=== PATIENT | male | born 1975 | race Caucasian/White ===

== ENCOUNTER 2020-01-19 12:57 | Emergency (ER) | payer BC, SELFPAY ==
[2020-01-19 13:29] VITALS: BP 142/78; PULSE 101; RESP 16; TEMP 36.6; O2SAT 97; BMI 21.9
--- NOTE | 2020-01-19 14:06 | ED.BACK ---
HPI - Back Pain/Injury General Chief Complaint: Back Pain/Injury Stated Complaint: back, hip, leg pain Time Seen by Provider: 01/19/20 14:06 Source: patient Mode of arrival: ambulatory Limitations: no limitations History of Present Illness HPI Narrative: 44 y/o male presenting with lower back and buttock pain that radiates down his legs that started yesterday when he woke up. He denies recent injury. He has a history of sciatica and states this feels similar. He hasn't had issues with it in several years. 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 He denies numbness, tingling, weakness or incontinence. He MD elicited complaint: back pain Pertinent past history: prior back pain Onset (ago): day(s) (1) Timing: constant Severity: severe Pain scale (0-10): 8 Similar Symptoms Previously: Yes Quality: sharp and aching Location: right lower back and left lower back Radiation: buttocks, left upper leg and right upper leg Exacerbating factors: movement and walking Relieving factors: immobilization Context: unknown Associated symptoms: denies other symptoms Treatments prior to arrival: acetaminophen Work related injury: No Related Data Previous Rx's Medication Instructions Recorded cyclobenzaprine 10 mg PO TID PRN #10 tab 01/19/20 hydrocodone-acetaminophen [[place]] 1 tab PO Q8H PRN #6 tab 01/19/20 lidocaine [Lidoderm] 1 patch TOPICAL DAILY #15 ea 01/19/20 naproxen 500 mg PO BID PRN #20 tab 01/19/20 prednisone 40 mg PO DAILY #10 tab 01/19/20 Allergies Allergy/AdvReac Type Severity Reaction Status Date / Time No Known Allergies Allergy Unverified 10/23/19 14:54 Review of Systems Review of Systems: Constitutional: No Fever, No Chills Cardiovascular: No Chest Pain, No SOB Respiratory: No Cough, No Sputum Gastrointestinal: No Nausea, No Vomiting, No Diarrhea, No abdominal Pain Genitourinary: No Dysuria, No Urinary Frequency, No Hematuria Musculoskeletal: + joint pain, + Myalgias Skin: No Skin Lesions, No rash Neuro: No Weakness, No Numbness Heme/Lymph: No Bruising PMFSH Past Medical History Attestation statement: The following information was validated with the patient. Medical History Club foot Psoriasis Scoliosis Surgical History (Updated 01/19/20 @ 13:33 by Zonia Beebe) History of ankle surgery Social History Social History Advance Directives: No Advance Directives Information Provided: No Physical Exam Vital Signs: Vital Signs: Last Vital Signs Temp 97.9 F 01/19/20 13:29 Pulse 101 H 01/19/20 13:29 Resp 16 01/19/20 13:29 BP 142/78 H 01/19/20 13:29 Pulse Ox 97 01/19/20 13:29 Body Mass Index 21.9 Appearance: Alert. Oriented X3. No acute distress. HEENT: normal inspection Respiratory: No respiratory distress. Skin: Skin warm and dry. Normal skin color. Normal skin turgor. No rashes. Back: bilateral SI joint tenderness with positive straight leg raise test on the left. no spinal tenderness. Extremities: atraumatic, no LE edema. normal DTR. Neuro: Oriented X 3. No motor deficit. No sensory deficit. Ambulates with steady gait Course Course Course Narrative: 44 y/o male with history of sciatica in the past presenting with the same. No trauma. No red flag symptoms of LBP, no hx IDVA. Exam with SI joint tenderness. He has been to PT in the past with good effect. He agrees to f/u with his PCP to arrange. Will give Rx for symptomatic management. Patient counseled and agrees to follow up. Stable for d/c. MDM - Back Pain/Injury Differential Diagnosis Differential diagnosis: Likely lumbar radiculopathy, sciatica and strain of lumbar region Critical Care Time Critical Care Time Critical Care Time: No Discharge Plan Discharge Clinical Impression: Sciatica Qualifiers: Laterality: bilateral Qualified Code(s): M54.31 - Sciatica, right side Patient Disposition: Home, Self-Care Instructions: Sciatica (ED), Lower Back Exercises (ED) Additional Instructions: Use ice several times per day for the next 48 hours then use heat. Limit bending, lifting >10 lbs and twisting movements. Take prescribed medications as directed. Follow up with your doctor this week. You would likely benefit from Physical Therapy. If you develop worsening pain, new numbness, weakness, tingling, or incontinence call 911 or come back to the ER for further evaluation. Prescriptions: New cyclobenzaprine 10 mg tablet 10 mg PO TID PRN (Reason: muscle spasm) Qty: 10 RF: 0 prednisone 20 mg tablet 40 mg PO DAILY Qty: 10 RF: 0 lidocaine [Lidoderm] 5 % adhesive patch,medicated 1 patch topical DAILY Qty: 15 RF: 0 naproxen 500 mg tablet 500 mg PO BID PRN (Reason: pain) Qty: 20 RF: 0 hydrocodone-acetaminophen [[place]] 5-325 mg tablet 1 tab PO Q8H PRN (Reason: pain) Qty: 6 RF: 0 Stand Alone Forms: Work/School Release Discharge Date/Time: 01/19/20 14:42
== END 2020-01-19 14:42 | disposition home or self-care (01) ==
PROVIDERS: Emergency Provider Emergency Medicine; PCP Internal Medicine
DX: M54.42 Lumbago with sciatica, left side (principal); M54.41 Lumbago with sciatica, right side
CPT/HCPCS: 99283

== ENCOUNTER 2020-10-30 15:08 | Emergency (ER) | payer OTHER, SELFPAY ==
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
[2020-10-30 15:22] VITALS: BP 112/64; PULSE 59; RESP 17; TEMP 36.7; O2SAT 98; BMI 21.9
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
== END 2020-10-30 19:08 | disposition home or self-care (01) ==
PROVIDERS: Emergency Provider Internal Medicine; PCP Internal Medicine
DX: S06.0X0A Concussion without loss of consciousness, initial encounter (principal); G44.309 Post-traumatic headache, unspecified, not intractable; M54.2 Cervicalgia; Y29.XXXA Contact with blunt object, undetermined intent, initial encounter; Y93.9 Activity, unspecified; Y92.9 Unspecified place or not applicable; Y99.0 Civilian activity done for income or pay; Z79.899 Other long term (current) drug therapy
CPT/HCPCS: 70450; 72125; 99283; 99284

== ENCOUNTER 2022-06-04 17:47 | Emergency (ER) | payer OTHER, SELFPAY ==
--- NOTE | ~2022-06-04 | XR_ITS ---
EXAMINATION: XR CERVICAL SPINE CLINICAL INFORMATION: Neck pain COMPARISON: None available. TECHNIQUE: 4 views FINDINGS: No prevertebral soft tissue swelling. Mild disc space narrowing at C5-C6 and C6-C7. Marginal osteophytes. Posterior elements appear intact. No focal bony lesion or fracture. Lung apices clear. XR/XR cervical spine 3V IMPRESSION: Mild degenerative disc disease as above.
[2022-06-04 18:34] VITALS: BP 136/76; PULSE 73; RESP 20; TEMP 36.7; O2SAT 98; BMI 23.5
--- NOTE | 2022-06-04 18:37 | ED_ITS ---
HPI - General Adult General Chief complaint: Back Pain/Injury <DALIA Khan - Last Filed: 06/06/22 13:24> Stated complaint: pain in back of head rad. to L arm <DALIA Khna - Last Filed: 06/06/22 13:24> Time Seen by Provider: 06/04/22 22:48 <DALIA Khan - Last Filed: 06/06/22 13:24> Source: patient <Raoul Pcaheco MD - Last Filed: 06/05/22 02:08> Mode of arrival: ambulatory <Raoul Pacheco MD - Last Filed: 06/05/22 02:08> Limitations: no limitations <Raoul Pacheco MD - Last Filed: 06/05/22 02:08> History of Present Illness HPI narrative: Patient history of arthritis works heavy , complaining of pain bilateral side of the neck for last 4 days no hand weakness no paresthesias does have chronic pain off and on <Raoul Pacheco MD - Last Filed: 06/05/22 02:08> Related Data Home medications: Previous Rx's Medication Instructions Recorded cyclobenzaprine 10 mg tablet 10 mg PO TID PRN muscle spasm #10 01/19/20 tabs hydrocodone 5 mg-acetaminophen 325 1 tab PO Q8H PRN pain #6 tabs 01/18/20 mg tablet ([place]) lidocaine 5 % topical patch 1 patch topical DAILY #15 ea 01/19/20 (Lidoderm) naproxen 500 mg tablet 500 mg PO BID PRN pain #20 tabs 01/19/20 prednisone 20 mg tablet 40 mg PO DAILY #10 tabs 01/19/20 cyclobenzaprine 10 mg tablet 10 mg PO Q8H #20 tabs 06/04/22 tramadol 50 mg tablet 50 mg PO Q6H PRN pain #20 tabs 06/04/22 <DALIA Khan - Last Filed: 06/06/22 13:24> Allergies/adverse reactions: Allergies Allergy/AdvReac Type Severity Reaction Status Date / Time No Known Allergies Allergy Verified 10/30/20 15:22 <DALIA Khan - Last Filed: 06/06/22 13:24> Review of Systems Review of Systems: Yes all other systems are reviewed and are negative <Raoul Pacheco MD - Last Filed: 06/05/22 02:08> [facility] Past Medical History Medical History: Medical History Club foot Psoriasis Scoliosis <DALIA Khan - Last Filed: 06/06/22 13:24> Surgical History: Surgical History History of ankle surgery <DALIA Khan - Last Filed: 06/06/22 13:24> Social History Social History: Social History Alcohol intake: current Alcohol intake frequency: holidays/special occasions only Alcohol type: beer and other Smoked in Last 30 Days: Yes Use of substances other than those prescribed or required for medical reasons: No Advance Directives: No Advance Directives Information Provided: No <DALIA Khna - Last Filed: 06/06/22 13:24> Physical Exam ED Vital Signs: Vital Signs - 24 hr 06/04/22 18:34 06/04/22 22:00 Temperature 98.0 F 97.7 F Pulse Rate 73 106 H Respiratory Rate 20 18 Blood Pressure 136/76 140/77 H Pulse Oximetry 98 96 Oxygen Delivery Method Room Air Room Air BMI result Body Mass Index 23.5 <DALIA Khan - Last Filed: 06/06/22 13:24> Vital Signs - 24 hr 06/04/22 18:34 06/04/22 22:00 Temperature 98.0 F 97.7 F Pulse Rate 73 106 H Respiratory Rate 20 18 Blood Pressure 136/76 140/77 H Pulse Oximetry 98 96 Oxygen Delivery Method Room Air Room Air BMI result Body Mass Index 23.5 <Raoul Pacheco MD - Last Filed: 06/05/22 02:08> Appearance: Alert. Oriented X3. No acute distress. ENT: Pharynx normal. Oral Mucosa moist Neck: Normal inspection. Neck supple. No midline tenderness bilateral CVS: Normal heart rate and rhythm. Pulses normal. Respiratory: No respiratory distress. Equal air entry bilateral, Abdomen: Soft and nontender. Bowel sounds are present, no mass palpable, Skin: Skin warm and dry. Normal skin color. Normal skin turgor. Extremities: No lower extremity edema. No calf tenderness Neuro: Oriented X 3. No motor deficit. No sensory deficit.No cerebellar signs , cranial nerves II-XII intact <Raoul Pacheco MD - Last Filed: 06/05/22 02:08> Course Course Course Narrative: RME: posterior neck pain radiating down left arm. Patient also states left forearm tichiness. patient staes no chest pain, or shortness of breath. negative for recent trauma or swelling of left upper extremity. Cervical spine xray ordered. due to neck paind going down left arm with fater having heart attack, will do cardiac workup <DALIA Khan - Last Filed: 06/06/22 13:24> Medications Administered Discontinued Medications Generic Name Dose Route Start Last Admin Trade Name Freq PRN Reason Stop Dose Admin Cyclobenzaprine HCl 10 mg 06/04/22 23:06 06/04/22 23:27 Cyclobenzaprine Hcl 10 Mg Tablet PO 06/04/22 23:07 10 mg ONCE ONE Administration Oxycodone HCl 5 mg 06/04/22 23:06 06/04/22 23:27 Oxycodone Hcl Immed Release 5 Mg Tablet PO 06/04/22 23:07 5 mg ONCE ONE Administration <DALIA Khan - Last Filed: 06/06/22 13:24> Medications Administered Discontinued Medications Generic Name Dose Route Start Last Admin Trade Name Freq PRN Reason Stop Dose Admin Cyclobenzaprine HCl 10 mg 06/04/22 23:06 06/04/22 23:27 Cyclobenzaprine Hcl 10 Mg Tablet PO 06/04/22 23:07 10 mg ONCE ONE Administration Oxycodone HCl 5 mg 06/04/22 23:06 06/04/22 23:27 Oxycodone Hcl Immed Release 5 Mg Tablet PO 06/04/22 23:07 5 mg ONCE ONE Administration <Raoul Pacheco MD - Last Filed: 06/05/22 02:08> Medical Decision Making Medical Decision Making [facility] Narrative: Patient has diffuse muscular pain no signs of no impingement discharge patient home on tramadol and Flexeril <Raoul Pacheco MD - Last Filed: 06/05/22 02:08> Lab Data [facility] Lab Attestation statement: I reviewed the patient's lab results. <Raoul Pacheco MD - Last Filed: 06/05/22 02:08> Result Diagrams: 06/04/22 19:00 06/04/22 19:00 <DALIA Khan - Last Filed: 06/06/22 13:24> Labs: Lab Results 06/04/22 06/04/22 06/04/22 Range/Units 19:00 19:00 19:00 WBC 10.2 (4.8-10.8) X10*3/uL RBC 4.90 (4.60-5.80) X10*6/uL Hgb 14.9 (14.0-18.0) g/dl Hct 43.4 (42.0-52.0) % MCV 88.6 (80.0-98.0) fL MCH 30.4 (27.0-33.0) pg MCHC 34.3 (31.0-36.0) g/dl RDW 12.7 (11.0-16.0) % Plt Count 342 (160-400) X10*3/uL MPV 8.8 L (9.4-12.4) fL Immature Gran % (Auto) 0.5 H (0.0-0.4) % Neut % (Auto) 66.1 (45-73) % Lymph % (Auto) 25.0 (20-40) % [place] % (Auto) 5.8 (2-11) % Eos % (Auto) 1.9 (0-4) % Baso % (Auto) 0.7 (0-2) % Lymph # (Auto) 2.5 (1.2-4.9) X10*3/uL [place] # (Auto) 0.6 (0.1-1.2) X10*3/uL Eos # (Auto) 0.2 (0.0-0.4) X10*3/uL Baso # (Auto) 0.1 (0.0-0.2) X10*3/uL Abs Immat Gran (auto) 0.05 H (0.00-0.03) X10*3/uL Absolute Neuts (auto) 6.7 (2.0-8.3) x10*3/uL Absolute Nucleated RBC 0.000 (0.0-0.012) X10*3/uL Nucleated RBC % (auto) 0.0 (0.0-0.2) /100WBC PT 11.0 (10.0-13.1) SEC INR 1.0 (0.9-1.1) APTT 31.7 (26.0-36.4) SEC Sodium 143 (135-145) mmol/L Potassium 4.2 (3.3-5.1) mmol/L Chloride 106 (96-108) mmol/L Carbon Dioxide 28 (22-29) mmol/L Anion Gap 13 (12-20) BUN 19 H (9-16) mg/dL Creatinine 0.90 (0.5-1.4) mg/dL Estim Creat Clear Calc 94.8 Estimated GFR > 60 Random Glucose 68 (60-115) mg/dL Calcium 10.2 (8.4-10.2) mg/dL Total Bilirubin 0.3 (0.0-1.0) mg/dL AST 17 (5-37) U/L ALT 16 (0-40) U/L Alkaline Phosphatase 59 (39-117) U/L Troponin I High Sens (<3.5-35.0) ng/L B-Natriuretic Peptide (<100) pg/mL Total Protein 7.3 (6.5-8.0) g/dL Albumin 4.6 (3.5-5.0) g/dL 06/04/22 06/04/22 Range/Units 19:00 19:00 WBC (4.8-10.8) X10*3/uL RBC (4.60-5.80) X10*6/uL Hgb (14.0-18.0) g/dl Hct (42.0-52.0) % MCV (80.0-98.0) fL MCH (27.0-33.0) pg MCHC (31.0-36.0) g/dl RDW (11.0-16.0) % Plt Count (160-400) X10*3/uL MPV (9.4-12.4) fL Immature Gran % (Auto) (0.0-0.4) % Neut % (Auto) (45-73) % Lymph % (Auto) (20-40) % [place] % (Auto) (2-11) % Eos % (Auto) (0-4) % Baso % (Auto) (0-2) % Lymph # (Auto) (1.2-4.9) X10*3/uL [place] # (Auto) (0.1-1.2) X10*3/uL Eos # (Auto) (0.0-0.4) X10*3/uL Baso # (Auto) (0.0-0.2) X10*3/uL Abs Immat Gran (auto) (0.00-0.03) X10*3/uL Absolute Neuts (auto) (2.0-8.3) x10*3/uL Absolute Nucleated RBC (0.0-0.012) X10*3/uL Nucleated RBC % (auto) (0.0-0.2) /100WBC PT (10.0-13.1) SEC INR (0.9-1.1) APTT (26.0-36.4) SEC Sodium (135-145) mmol/L Potassium (3.3-5.1) mmol/L Chloride (96-108) mmol/L Carbon Dioxide (22-29) mmol/L Anion Gap (12-20) BUN (9-16) mg/dL Creatinine (0.5-1.4) mg/dL Estim Creat Clear Calc Estimated GFR Random Glucose (60-115) mg/dL Calcium (8.4-10.2) mg/dL Total Bilirubin (0.0-1.0) mg/dL AST (5-37) U/L ALT (0-40) U/L Alkaline Phosphatase (39-117) U/L Troponin I High Sens 3.7 (<3.5-35.0) ng/L B-Natriuretic Peptide 11 (<100) pg/mL Total Protein (6.5-8.0) g/dL Albumin (3.5-5.0) g/dL <DALIA Khan - Last Filed: 06/06/22 13:24> Lab Results 06/04/22 06/04/22 06/04/22 Range/Units 19:00 19:00 19:00 WBC 10.2 (4.8-10.8) X10*3/uL RBC 4.90 (4.60-5.80) X10*6/uL Hgb 14.9 (14.0-18.0) g/dl Hct 43.4 (42.0-52.0) % MCV 88.6 (80.0-98.0) fL MCH 30.4 (27.0-33.0) pg MCHC 34.3 (31.0-36.0) g/dl RDW 12.7 (11.0-16.0) % Plt Count 342 (160-400) X10*3/uL MPV 8.8 L (9.4-12.4) fL Immature Gran % (Auto) 0.5 H (0.0-0.4) % Neut % (Auto) 66.1 (45-73) % Lymph % (Auto) 25.0 (20-40) % [place] % (Auto) 5.8 (2-11) % Eos % (Auto) 1.9 (0-4) % Baso % (Auto) 0.7 (0-2) % Lymph # (Auto) 2.5 (1.2-4.9) X10*3/uL [place] # (Auto) 0.6 (0.1-1.2) X10*3/uL Eos # (Auto) 0.2 (0.0-0.4) X10*3/uL Baso # (Auto) 0.1 (0.0-0.2) X10*3/uL Abs Immat Gran (auto) 0.05 H (0.00-0.03) X10*3/uL Absolute Neuts (auto) 6.7 (2.0-8.3) x10*3/uL Absolute Nucleated RBC 0.000 (0.0-0.012) X10*3/uL Nucleated RBC % (auto) 0.0 (0.0-0.2) /100WBC PT 11.0 (10.0-13.1) SEC INR 1.0 (0.9-1.1) APTT 31.7 (26.0-36.4) SEC Sodium 143 (135-145) mmol/L Potassium 4.2 (3.3-5.1) mmol/L Chloride 106 (96-108) mmol/L Carbon Dioxide 28 (22-29) mmol/L Anion Gap 13 (12-20) BUN 19 H (9-16) mg/dL Creatinine 0.90 (0.5-1.4) mg/dL Estim Creat Clear Calc 94.8 Estimated GFR > 60 Random Glucose 68 (60-115) mg/dL Calcium 10.2 (8.4-10.2) mg/dL Total Bilirubin 0.3 (0.0-1.0) mg/dL AST 17 (5-37) U/L ALT 16 (0-40) U/L Alkaline Phosphatase 59 (39-117) U/L Troponin I High Sens (<3.5-35.0) ng/L B-Natriuretic Peptide (<100) pg/mL Total Protein 7.3 (6.5-8.0) g/dL Albumin 4.6 (3.5-5.0) g/dL 06/04/22 06/04/22 Range/Units 19:00 19:00 WBC (4.8-10.8) X10*3/uL RBC (4.60-5.80) X10*6/uL Hgb (14.0-18.0) g/dl Hct (42.0-52.0) % MCV (80.0-98.0) fL MCH (27.0-33.0) pg MCHC (31.0-36.0) g/dl RDW (11.0-16.0) % Plt Count (160-400) X10*3/uL MPV (9.4-12.4) fL Immature Gran % (Auto) (0.0-0.4) % Neut % (Auto) (45-73) % Lymph % (Auto) (20-40) % [place] % (Auto) (2-11) % Eos % (Auto) (0-4) % Baso % (Auto) (0-2) % Lymph # (Auto) (1.2-4.9) X10*3/uL [place] # (Auto) (0.1-1.2) X10*3/uL Eos # (Auto) (0.0-0.4) X10*3/uL Baso # (Auto) (0.0-0.2) X10*3/uL Abs Immat Gran (auto) (0.00-0.03) X10*3/uL Absolute Neuts (auto) (2.0-8.3) x10*3/uL Absolute Nucleated RBC (0.0-0.012) X10*3/uL Nucleated RBC % (auto) (0.0-0.2) /100WBC PT (10.0-13.1) SEC INR (0.9-1.1) APTT (26.0-36.4) SEC Sodium (135-145) mmol/L Potassium (3.3-5.1) mmol/L Chloride (96-108) mmol/L Carbon Dioxide (22-29) mmol/L Anion Gap (12-20) BUN (9-16) mg/dL Creatinine (0.5-1.4) mg/dL Estim Creat Clear Calc Estimated GFR Random Glucose (60-115) mg/dL Calcium (8.4-10.2) mg/dL Total Bilirubin (0.0-1.0) mg/dL AST (5-37) U/L ALT (0-40) U/L Alkaline Phosphatase (39-117) U/L Troponin I High Sens 3.7 (<3.5-35.0) ng/L B-Natriuretic Peptide 11 (<100) pg/mL Total Protein (6.5-8.0) g/dL Albumin (3.5-5.0) g/dL <Raoul Pacheco MD - Last Filed: 06/05/22 02:08> Discharge Plan Discharge Clinical Impression: Cervical myofascial strain <DALIA Khan - Last Filed: 06/06/22 13:24> Patient Disposition: Home, Self-Care <DALIA Khan - Last Filed: 06/06/22 13:24> Instructions: Cervical Strain (ED) <DALIA Khan - Last Filed: 06/06/22 13:24> Additional Instructions: Take pain medication and muscle relaxant as prescribed Rest and apply ice <DALIA Khan - Last Filed: 06/06/22 13:24> Prescriptions: New cyclobenzaprine 10 mg tablet 10 mg PO Q8H Qty: 20 0RF tramadol 50 mg tablet 50 mg PO Q6H PRN (Reason: pain) Qty: 20 0RF No Action cyclobenzaprine 10 mg tablet 10 mg PO TID PRN (Reason: muscle spasm) Qty: 10 0RF prednisone 20 mg tablet 40 mg PO DAILY Qty: 10 0RF lidocaine [Lidoderm] 5 % adhesive patch,medicated 1 patch topical DAILY Qty: 15 0RF Rx Instructions: leave on most painful area for up to 12 hrs naproxen 500 mg tablet 500 mg PO BID PRN (Reason: pain) Qty: 20 0RF hydrocodone-acetaminophen [[place]] 5-325 mg tablet 1 tab PO Q8H PRN (Reason: pain) Qty: 6 0RF Rx Instructions: for 3 days <DALIA Khan - Last Filed: 06/06/22 13:24> Stand Alone Forms: Work/School Release <DALIA Khan - Last Filed: 06/06/22 13:24> Interventions: ED Discharge Assessment Last Done: 06/04/22 23:34 <DALIA Khan - Last Filed: 06/06/22 13:24> Discharge Date/Time: 06/04/22 23:34 <DALIA Khan - Last Filed: 06/06/22 13:24>
--- NOTE | 2022-06-04 18:40 | ECG_ITS ---
Test Reason : BACK PAIN Blood Pressure : / mmHG Vent. Rate : 069 BPM Atrial Rate : 069 BPM P-R Int : 134 ms QRS Dur : 098 ms QT Int : 360 ms P-R-T Axes : 053 025 048 degrees QTc Int : 385 ms Normal sinus rhythm Normal ECG No previous ECGs available Referred By: Nazario Worrell Electronically Signed By:JUVE NGUYEN MD
[2022-06-04 19:05] LABS: MANUAL DIFF FLAG NO
[2022-06-04 19:07] LABS: Basophils Absolute Auto 0.1 X10*3/uL (0.0-0.2); Basophils Percent Auto 0.7 % (0-2); Eosinophils Absolute Auto 0.2 X10*3/uL (0.0-0.4); Eosinophils Percent Auto 1.9 % (0-4); Hematocrit 43.4 % (42.0-52.0); Hemoglobin 14.9 g/dl (14.0-18.0); Imm Gran Abs Auto 0.05 X10*3/uL (0.00-0.03); Imm Gran Pct Auto 0.5 % (0.0-0.4); Lymphocytes Absolute Auto 2.5 X10*3/uL (1.2-4.9); Mean Corpuscular HGB Conc 34.3 g/dl (31.0-36.0); Mean Corpuscular Hemoglobin 30.4 pg (27.0-33.0); Mean Corpuscular Volume 88.6 fL (80.0-98.0); Mean Platelet Volume 8.8 fL (9.4-12.4); Monocytes Absolute Auto 0.6 X10*3/uL (0.1-1.2); Monocytes Percent Auto 5.8 % (2-11); Neutrophils Absolute Auto 6.7 x10*3/uL (2.0-8.3); Neutrophils Percent Auto 66.1 % (45-73); Platelet Count 342 X10*3/uL (160-400); Red Cell Distribution Width 12.7 % (11.0-16.0); White Blood Count 10.2 X10*3/uL (4.8-10.8)
[2022-06-04 19:15] LABS: Partial Thromboplastin Time 31.7 SEC (26.0-36.4)
[2022-06-04 19:28] LABS: Alanine Aminotransferase 16 U/L (0-40); Albumin Level 4.6 g/dL (3.5-5.0); Alkaline Phosphatase 59 U/L (39-117); Anion Gap 13 (12-20); Aspartate Amino Transferase 17 U/L (5-37); Bilirubin Total 0.3 mg/dL (0.0-1.0); Blood Urea Nitrogen 19 mg/dL (9-16); Calcium 10.2 mg/dL (8.4-10.2); Carbon Dioxide 28 mmol/L (22-29); Chloride 106 mmol/L (96-108); Creatinine Clr Calc Pharmacy 94.8; Estimated Glomerular Filt Rate > 60; Glucose Random 68 mg/dL (60-115); Potassium 4.2 mmol/L (3.3-5.1); Sodium 143 mmol/L (135-145); Total Protein 7.3 g/dL (6.5-8.0)
[2022-06-04 19:34] LABS: B Type Natriuretic Peptide 11 pg/mL (<100)
[2022-06-04 19:35] LABS: Troponin-I High Sensitivity 3.7 ng/L (<3.5-35.0)
[2022-06-04 22:00] VITALS: BP 140/77; PULSE 106; RESP 18; TEMP 36.5; O2SAT 96
[2022-06-04] MEDS: Cyclobenzaprine HCl 10 MG TABLET PO (23:27)
[2022-06-04] MEDS: oxyCODONE HCl Immed Release 5 MG TABLET PO (23:27)
== END 2022-06-04 23:34 | disposition home or self-care (01) ==
PROVIDERS: Physician Assistant; Emergency Provider Internal Medicine; PCP Internal Medicine
DX: S13.4XXA Sprain of ligaments of cervical spine, initial encounter (principal); R51.9 Headache, unspecified; M54.2 Cervicalgia; R06.02 Shortness of breath; M54.50 Low back pain, unspecified; X58.XXXA Exposure to other specified factors, initial encounter; Y93.9 Activity, unspecified; Y92.9 Unspecified place or not applicable; Y99.9 Unspecified external cause status; Z79.899 Other long term (current) drug therapy
CPT/HCPCS: 36415; 72040; 80053; 83880; 84484; 85025; 85610; 85730; 93005; 99285

== ENCOUNTER 2023-09-26 17:30 | Emergency (ER) | payer OTHER, SELFPAY ==
--- NOTE | ~2023-09-26 | CT_ITS ---
EXAMINATION: CT HEAD WITHOUT CONTRAST CLINICAL INFORMATION: Headache COMPARISON: None. TECHNIQUE: Contiguous axial imaging was performed from the skullbase to vertex without intravenous administration of contrast. This CT examination was performed using dose optimization techniques as appropriate, variously including the following: *Automated exposure control *Adjustment of mA and/or kV according to patient size (this includes techniques or standardized protocols for targeted exams where dose is matched to indication/reason for exam; i.e. extremities or head) *Use of iterative reconstruction technique DLP [id number] mgy centimeter FINDINGS: There is no evidence of acute intracranial hemorrhage or territorial infarction. No abnormal mass effect or midline shift is seen. [place] to white matter differentiation is well preserved. No extra-axial fluid collections are identified. The ventricles are normal in size. There is no abnormal attenuation within the brain parenchyma. The osseous structures and soft tissues are normal. The mastoid air cells and visualized portions of the paranasal sinuses are well-aerated. CT/CT head/brain wo IV con IMPRESSION: No acute intracranial pathology. Electronically signed by: Bruno Perez MD 09/26/2023 09:11 PM EDT
[2023-09-26 18:18] VITALS: BP 133/77; PULSE 65; RESP 18; TEMP 36.9; O2SAT 100; BMI 23.4
--- NOTE | 2023-09-26 18:19 | ED.GENADULT ---
HPI - General Adult General Chief complaint: Headache Stated complaint: pressure at base of head, feels out of it\ Time Seen by Provider: 09/27/23 02:07 Source: patient Mode of arrival: ambulatory Limitations: no limitations History of Present Illness ED Provider: Dr. Ren HPI narrative: Patient complaining of headache and extreme fatigue for the past 4 days, just feels like he can't function Onset (ago): day(s) Related Data Previous Rx's ?Medication ?Instructions ?Recorded cyclobenzaprine 10 mg tablet 10 mg PO TID PRN muscle spasm #10 01/19/20 tabs hydrocodone 5 mg-acetaminophen 325 1 tab PO Q8H PRN pain #6 tabs 01/19/20 mg tablet ([place]) lidocaine 5 % topical patch 1 patch topical DAILY #15 ea 01/19/20 (Lidoderm) naproxen 500 mg tablet 500 mg PO BID PRN pain #20 tabs 01/19/20 prednisone 20 mg tablet 40 mg (2 x 20 mg) PO DAILY #10 tabs 01/19/20 cyclobenzaprine 10 mg tablet 10 mg PO Q8H #20 tabs 06/04/22 tramadol 50 mg tablet 50 mg PO Q6H PRN pain #20 tabs 06/04/22 Allergies Allergy/AdvReac Type Severity Reaction Status Date / Time No Known Allergies Allergy Verified 09/26/23 18:21 Review of Systems Review of Systems: Yes all other systems are reviewed and are negative Neurologic: Denies Sensory deficit (Neuro) PMFSH Past Medical History Medical History Club foot Psoriasis Scoliosis Surgical History History of ankle surgery Social History Social History Alcohol intake: current Alcohol intake frequency: holidays/special occasions only Alcohol type: beer and other Advance Directives: No Advance Directives Information Provided: Yes Do you have a plan to hurt others: No Plan Physical Exam ED Vital Signs: Vital Signs - 24 hr 09/26/23 18:18 09/26/23 23:04 09/26/23 23:04 Temperature 98.4 F 97.0 F 97.0 F Pulse Rate 65 55 55 Respiratory Rate 18 17 17 Blood Pressure 133/77 119/75 119/75 Pulse Oximetry 100 100 100 Oxygen Delivery Method Room Air Room Air Room Air 09/27/23 02:00 Temperature 97.3 F Pulse Rate 54 Respiratory Rate 16 Blood Pressure 125/74 Pulse Oximetry 99 Oxygen Delivery Method Room Air BMI result Body Mass Index 23.4 Const General: healthy appearing Nutritional Appearance: average body habitus Orientation/consciousness: oriented to person and patient oriented x3 Limitations: no limitations HENMT Head: Yes normal to inspection Ears: external ears normal General nose exam: Normal external nose present Mouth: Normal oral and palatal mucosa present and oropharynx normal Throat: Yes posterior oropharynx normal Eyes General: appearance normal, both eyes and all related structures Neck Neck: Yes normal visual inspection Chest Chest palpation & inspection: normal inspection of the chest Resp Auscultation: clear to auscultation bilaterally Cardio Jugular venous distension: no JVD Rate: regular rate Rhythm: regular rhythm Heart sounds: S1 normal heart sound present and S2 normal heart sound present GI Inspection: Yes normal to inspection Palpation (GI): Soft to palpation, nontender and No hepatosplenomegaly present Auscultation: normal bowel sounds General: Yes no CVA tenderness Back/Spine/Pelvis Back: no CVA tenderness Skin General skin exam: no rashes or lesions noted Neuro General: oriented to person and patient oriented x3 Cranial nerves: Yes CN's II-XII intact bilaterally Motor exam (neuro): 5/5 motor strength present throughout Sensory Exam: No Sensory deficit (Neuro) Extrem General: Yes normal to inspection Psych Appearance: grossly normal Course Course Course Narrative: RME, this is a rapid medical exam performed by Emigdio Salas please refer to primary provider for complete H&P- 48 year old male presents for evaluation of posterior headache that he describes as a pressure. Neurologically intact. Plan for basic labs and a CT brain. Patient denies any history of migraines Reevaluation(s) Reevaluation #1: CT of brain and blood work negative, no evidence of mass or electrolyte or cell count problems Time: 02:23 Medical Decision Making Differential Diagnosis Differential Diagnoses: The differential diagnosis associated with the presentation includes (brain tumor, mass, cerebral bleed, anemia, electrolyte abnormality) Admission/Observation Consideration of admission/observation: Escalation of care including admission/observation considered (Upon arrival patient considered for admission) Lab Data 09/26/23 18:46 09/26/23 18:46 Labs: Lab Results 09/26/23 Range/Units 18:46 WBC 11.1 H (4.8-10.8) X10*3/uL RBC 4.87 (4.60-5.80) X10*6/uL Hgb 15.2 (14.0-18.0) g/dl Hct 43.4 (42.0-52.0) % MCV 89.1 (80.0-98.0) fL MCH 31.2 (27.0-33.0) pg MCHC 35.0 (31.0-36.0) g/dl RDW 13.2 (11.0-16.0) % Plt Count 351 (160-400) X10*3/uL MPV 9.2 L (9.4-12.4) fL Immature Gran % (Auto) 0.4 (0.0-0.4) % Neut % (Auto) 68.3 (45-73) % Lymph % (Auto) 23.1 (20-40) % [place] % (Auto) 6.2 (2-11) % Eos % (Auto) 1.3 (0-4) % Baso % (Auto) 0.7 (0-2) % Lymph # (Auto) 2.6 (1.2-4.9) X10*3/uL [place] # (Auto) 0.7 (0.1-1.2) X10*3/uL Eos # (Auto) 0.1 (0.0-0.4) X10*3/uL Baso # (Auto) 0.1 (0.0-0.2) X10*3/uL Abs Immat Gran (auto) 0.04 H (0.00-0.03) X10*3/uL Absolute Neuts (auto) 7.6 (2.0-8.3) x10*3/uL Absolute Nucleated RBC 0.000 (0.0-0.012) X10*3/uL Nucleated RBC % (auto) 0.0 (0.0-0.2) /100WBC Sodium 140 (135-145) mmol/L Potassium 4.0 (3.3-5.1) mmol/L Chloride 106 (96-108) mmol/L Carbon Dioxide 26 (22-29) mmol/L Anion Gap 12 (12-20) BUN 14 (9-16) mg/dL Creatinine 0.94 (0.5-1.4) mg/dL Estim Creat Clear Calc 88.8 Estimated GFR > 60 Random Glucose 90 (60-115) mg/dL Calcium 9.9 (8.4-10.2) mg/dL Total Bilirubin 0.4 (0.0-1.0) mg/dL AST 17 (5-37) U/L ALT 12 (0-40) U/L Alkaline Phosphatase 58 (39-117) U/L Total Protein 7.5 (6.5-8.0) g/dL Albumin 4.4 (3.5-5.0) g/dL Lipase 24 (8-78) U/L Independent Interpretation I performed an independent interpretation of an: CT Scan (BRain: no mass or bleed) Radiology Impression Discussion of test interpretation with radiology: I have reviewed the radiologist's reading. Prescription Management I considered prescription management with: Antibiotic (no evidence of bacterial infection) Discharge Plan Discharge Clinical Impression: Headache, Fatigue Patient Disposition: Home, Self-Care Instructions: Acute Headache (ED), Fatigue (ED) Prescriptions: No Action cyclobenzaprine 10 mg tablet 10 mg PO TID PRN (Reason: muscle spasm) Qty: 10 0RF prednisone 20 mg tablet 40 mg PO DAILY Qty: 10 0RF lidocaine [Lidoderm] 5 % adhesive patch,medicated 1 patch topical DAILY Qty: 15 0RF Rx Instructions: leave on most painful area for up to 12 hrs naproxen 500 mg tablet 500 mg PO BID PRN (Reason: pain) Qty: 20 0RF hydrocodone-acetaminophen [[place]] 5-325 mg tablet 1 tab PO Q8H PRN (Reason: pain) Qty: 6 0RF Rx Instructions: for 3 days cyclobenzaprine 10 mg tablet 10 mg PO Q8H Qty: 20 0RF tramadol 50 mg tablet 50 mg PO Q6H PRN (Reason: pain) Qty: 20 0RF Referrals: Luis Armando Turner MD [Primary Care Provider] - 5 days Print Language: Kyrgyz
[2023-09-26 18:52] LABS: MANUAL DIFF FLAG NO
[2023-09-26 19:08] LABS: Alanine Aminotransferase 12 U/L (0-40); Albumin Level 4.4 g/dL (3.5-5.0); Alkaline Phosphatase 58 U/L (39-117); Anion Gap 12 (12-20); Aspartate Amino Transferase 17 U/L (5-37); Bilirubin Total 0.4 mg/dL (0.0-1.0); Blood Urea Nitrogen 14 mg/dL (9-16); Calcium 9.9 mg/dL (8.4-10.2); Carbon Dioxide 26 mmol/L (22-29); Chloride 106 mmol/L (96-108); Creatinine Clr Calc Pharmacy 88.8; Estimated Glomerular Filt Rate > 60; Glucose Random 90 mg/dL (60-115); Lipase 24 U/L (8-78); Sodium 140 mmol/L (135-145); Total Protein 7.5 g/dL (6.5-8.0)
[2023-09-26 19:18] LABS: Basophils Absolute Auto 0.1 X10*3/uL (0.0-0.2); Basophils Percent Auto 0.7 % (0-2); Eosinophils Absolute Auto 0.1 X10*3/uL (0.0-0.4); Eosinophils Percent Auto 1.3 % (0-4); Hematocrit 43.4 % (42.0-52.0); Hemoglobin 15.2 g/dl (14.0-18.0); Imm Gran Abs Auto 0.04 X10*3/uL (0.00-0.03); Imm Gran Pct Auto 0.4 % (0.0-0.4); Lymphocytes Absolute Auto 2.6 X10*3/uL (1.2-4.9); Lymphocytes Percent Auto 23.1 % (20-40); Mean Corpuscular Hemoglobin 31.2 pg (27.0-33.0); Mean Corpuscular Volume 89.1 fL (80.0-98.0); Mean Platelet Volume 9.2 fL (9.4-12.4); Monocytes Absolute Auto 0.7 X10*3/uL (0.1-1.2); Monocytes Percent Auto 6.2 % (2-11); Neutrophils Absolute Auto 7.6 x10*3/uL (2.0-8.3); Neutrophils Percent Auto 68.3 % (45-73); Platelet Count 351 X10*3/uL (160-400); Red Blood Count 4.87 X10*6/uL (4.60-5.80); Red Cell Distribution Width 13.2 % (11.0-16.0); White Blood Count 11.1 X10*3/uL (4.8-10.8)
[2023-09-26 23:04] VITALS: BP 119/75; PULSE 55; RESP 17; TEMP 36.1; O2SAT 100
--- OUTSIDE RECORDS SUMMARY | 2023-09-27 01:31 | XMS_ITS | Continuity of Care Document ---
Author Organization [facility] Address [address] [place] [address]- Care Team Providers Care Repeat Chief Name Role Phone Luis Armando Turner MD Primary Care Physician [phone] Encounter [facility] [place] Date(s): 08/03/22 - 09/02/[address] [id number] Attending Physician: Goyo Osborn Admitting Physician: Admtr, Ar8 Referring Physician: Admtr, Ar8 Allergies, Adverse Reactions, Alerts No Known Allergies Social History Social History Type Response Smoking Status Current every day sm oker; Tobacco user in household: No; Type: Cigarettes entered on: 07/06/15 Sex Patient Care team information Care Team Personnel Name: Luis Armando Turner MD Position: Reference Physician Member Role: PCP Address: Address: [address] [place] [address] Luis Armando Turner MD [place], [place] [id number] Care Team Related Persons Name: COURTNEY SANDOVAL Address: home [address] [place] [address]
--- OUTSIDE RECORDS SUMMARY | 2023-09-27 01:31 | XMS_ITS | Continuity of Care Document ---
Author Organization [facility] Address [address] [place] [address]- Care Team Providers Care Research Support Specialist Name Role Phone Luis Armando Turner MD Primary Care Physician Encounter [facility] [place] Date(s): 07/18/22 - 08/18/[address] [address]- Encounter Diagnosis Sacrococcygeal disorders, not elsewhere classified(Final) - Discharge Disposition: A-D/C Home Attending Physician: Ramakrishna Joyner MD Admitting Physician: Ramakrishna Joyner MD Referring Physician: Ramakrishna Joyner MD Allergies, Adverse Reactions, Alerts No Known Allergies Social History Social History Type Response Smoking Status Current every day sm oker; Tobacco user in household: No; Type: Cigarettes entered on: 07/06/15 Sex Patient Care team information Care Team Personnel Name: Luis Armando Turner MD Position: Reference Physician Member Role: PCP Address: Address: [address] [place] [address] Luis Armando Turner [place], [place] [address] Care Team Related Persons Name: COURTNEY SANDOVAL Address: home [address] [place] [address]
--- NOTE | 2023-09-27 01:47 | PC.NURSE ---
Pt is a 48 y/o male who presents for evaluation of head pressure at the base of his skull that started Sunday with no similar episodes reported in the past. Hx is significant for a concussion approximately 2 years ago, seen here and scoliosis. Pt reports a pressure feeling at the base of his skull that is accompanied by tingling in left pinky finger and inability to concentrate, feeling loopy , wanting to sleep all the time, and feeling drained after short/simple tasks. Today reports having some nausea, but no vomiting. Denies any numbness or tingling in extremities except for finger on left hand and any visual disturbances. No recent trauma, travel, recent illness or fever, and contact with anyone known to be sick. Nothng taken at home for the discomfort. Food and fluid intake WNL for pt. Works outside everyday.
[2023-09-27 02:00] VITALS: BP 125/74; PULSE 54; RESP 16; TEMP 36.3; O2SAT 99
[2023-09-27 02:42] VITALS: BP 116/70; PULSE 88; RESP 16; TEMP 36.4
== END 2023-09-27 02:45 | disposition home or self-care (01) ==
PROVIDERS: Physician Assistant; Emergency Provider Emergency Medicine; PCP Internal Medicine
DX: R51.9 Headache, unspecified (principal); R53.83 Other fatigue
CPT/HCPCS: 36415; 70450; 80053; 83690; 85025; 99283; 99284